=== PATIENT | female | born 1980 | race Caucasian/White ===

== ENCOUNTER 2016-08-10 12:46 | Emergency (ER) | payer BC ==
[~2016-08-10 12:46] MED LIST: ALBUTEROL0.83 MG/ML INH; AMBIEN CR12.5 MG PO; AMBIEN PAK10 MG PO; AMBIEN10 MG; AMBIEN10 MG PO; AMITRIPTYLINE H25 M1 PO; AMITRIPTYLINE PO; AMOXICILLIN875 MG PO; ATROVENT; AUGMENTIN875 MG PO; BACTRIM DS TABL1 TAB PO; BACTRIM DS1 TA1 PO; BCP; BYSTOLIC10 M1 PO; CELEXA20 MG; CLONAZEPAM0.5 MG; CLONAZEPAM1 M2 PO; CORGARD40 M1 PO; CORGARD40 MG; CORGARD40 MG PO; COUMADIN10 M1 PO; COUMADIN2 M1 PO; COZAAR50 MG PO; CYMBALTA30 MG PO; CYMBALTA60 MG PO; DOXYCYCLINE HY100 MG PO; ENDOCET 10-3251 EACH PO; FLUOXETINE HCL20 MG; IBUPROFEN IB200 M1 PO; IRBESARTAN300 M1 PO; LEVAQUIN250 MG PO; LOVENOX120 MG/0.1 SC; LOVENOX40 MG/0.4; MAXALT10 MG PO; MORPHINE S100 MG/5 M PO; MOTRIN800 MG PO; NORCO 5/325 TAB1 TAB; NORCO 5/325 TAB1 TAB PO; NORCO 5/3251 TA1 PO; NORCO 5/3251 TAB PO; OMEPRAZOLE20 M2 PO; OXYCODONE HCL20 M3 PO; OXYCODONE/APAP PO; PERCOCET 5/3251 TAB PO; PRENATAL1 TAB; ROBITUSSIN-DM120 ML PO; STOOL SOFTENER100 MG PO; TORADOL10 MG PO; UNISOM25 MG PO; VISTARIL50 MG PO; VITAMIN D PO; VITAMIN D250000 UNI1 PO; VITAMIN D50000 UNI1 PO; WELLBUTRIN SR150 M1 PO; ZOFRAN ODT4 MG PO; ZOFRAN ODT4 MG/UDTAB PO; [UNRECOGNIZED DRUG - CODE]
[2016-08-10] MEDS ORDERED: COUMADIN10 M1 PO (13:44)
[2016-08-10] MEDS ORDERED: XANAX0.5 M1 PO (13:44)
[2016-08-10] MEDS ORDERED: COUMADIN1 M1 PO ×2 (13:45→13:46)
[2016-08-10 14:32] LABS: BASO % 0.6 % (0-2); EOS % 2.6 % (0-7); EOSINOPHIL ABSOLUTE COUNT 0.2 tho/cmm (0.0-0.7); HCT-HEMATOCRIT 36.9 % (34.0-49.0); HGB-HEMOGLOBIN 13.2 gm/dl (12.0-15.5); IMMATURE GRANULOCYTES ABSOLUTE 0.02 tho/cmm (0-0.03); IMMATURE GRANULOCYTES PERCENT 0.3 % (0-0.3); LYMPH % 51.7 % (20-45); LYMPH ABSOLUTE COUNT 3.6 tho/cmm (0.8-4.5); MCH (MEAN CORPUSCULAR HGB) 30.6 pg (28.0-32.0); MCHC MEAN CORPUSCULAR HGB CONC 35.8 % (32.0-36.0); MCV (MEAN CELL VOLUME) 85.6 fl (82.0-96.0); MEAN PLATELET VOLUME 9.8 cmc (9.4-12.4); MONO % 6.5 % (0-12); MONOCYTE ABSOLUTE COUNT 0.5 tho/cmm (0.0-1.2); NEUTROPHIL ABSOLUTE COUNT 2.7 tho/cmm (1.6-8.0); NEUTROPHIL-AUTOMATED 2.7 tho/cmm (1.6-8.0); NEUTROPHILS % 38.3 % (40-80); PLATELET COUNT 156 tho/cmm (150-450); RED BLOOD COUNT 4.31 mil/cmm (4.00-5.20); RED CELL DISTRIBUTION WIDTH 12.7 % (12.4-16.4); WHITE BLOOD COUNT 6.9 tho/cmm (4.0-10.0)
[2016-08-10 14:44] LABS: PROTHROMBIN TIME 48.4 SECONDS (9.0-13.6)
[2016-08-10] MEDS ORDERED: HALCION0.25 M2 PO (14:49)
[2016-08-10 14:51] LABS: ANION GAP 11 mmol/L (0-20); BLOOD UREA NITROGEN 4 mg/dl (6-24); CARBON DIOXIDE-VENOUS 26 mmol/L (22-32); CHLORIDE 106 mmol/l (96-110); CREATININE 0.74 mg/dl (0.50-1.10); GLUCOSE 93 mg/dL (70-110); POTASSIUM 3.4 mmol/L (3.7-5.1); SODIUM 140 mmol/L (135-145); eGFR VALUE FOR BLACK >90 mL/Min
[2016-08-10] MEDS ORDERED: GAS-X125 M2 PO (15:05)
[2016-08-10] MEDS ORDERED: TUMS300 M1 CH (15:06)
[2016-08-10] MEDS ORDERED: FIORICET 50-301 EAC1 PO (15:13)
[2016-11-11] MEDS ORDERED: OXYMORPHONE HCL10 MG PO (11:27)
[2016-11-11] MEDS ORDERED: COUMADIN10 M1 PO (11:29)
[2016-11-11] MEDS ORDERED: ONDANSETRON ODT4 M1 SL (11:42)
[2016-11-11] MEDS ORDERED: TYLENOL EXTRA500 M1 PO (11:57)
[2016-11-11] MEDS ORDERED: COUMADIN1 M1 PO ×2 (12:00→12:01)
[2016-11-16] MEDS ORDERED: OXYMORPHONE HCL10 MG PO (11:21)
[2016-11-16] MEDS ORDERED: CYCLOBENZAPRINE5 M1 PO (11:22)
[2016-11-16] MEDS ORDERED: KEPPRA500 M3 PO (11:22)
[2016-11-16] MEDS ORDERED: COUMADIN4 M1 PO (11:23)
== END 2016-08-10 16:05 ==
LOC: EDMED 12:46
PROVIDERS: Emergency Medicine
DX: R10.31 Right lower quadrant pain (principal); Z86.711 Personal history of pulmonary embolism; Z86.718 Personal history of other venous thrombosis and embolism; Z79.01 Long term (current) use of anticoagulants; Z87.891 Personal history of nicotine dependence
CPT/HCPCS: J1170; J2405; J7030; Q9967